=== PATIENT | male | born 1985 | race Caucasian/White ===

== ENCOUNTER 2019-01-30 10:05 | Emergency (ER) | payer MEDICAID, OTHER, SELFPAY ==
[~2019-01-30] VITALS: Ht 167.6 cm; Wt 63.6 kg
[2019-01-30 10:05] VITALS: BP 131/79
[2019-01-30] MEDS ORDERED: MAGICMW SSP (10:47)
[2019-01-30] MEDS ORDERED: CLIN1SOL24 PO (10:47)
== END 2019-01-30 10:56 | disposition home or self-care (01) ==
LOC: M ED 10:05
DX: K04.7 Periapical abscess without sinus (principal); K08.89 Other specified disorders of teeth and supporting structures; Z72.0 Tobacco use

== ENCOUNTER 2019-02-01 14:24 | Emergency (ER) | payer MEDICAID, SELFPAY ==
[~2019-02-01] VITALS: Ht 160 cm; Wt 63.6 kg
[~2019-02-01 14:24] MED LIST: CLIN1SOL24 PO; MAGICMW SSP
[2019-02-01] MEDS ORDERED: NS 1,000 ML IV ONE (15:45)
[2019-02-01 15:58] LABS: BASO # 0.1 10^3/uL (0.0-0.2); BASO % 0.7 % (0.0-1.0); EOS # 0.2 10^3/uL (0.0-0.50); EOS % 1.4 % (0.0-3.0); HEMATOCRIT 43.1 % (42.0-52.0); HEMOGLOBIN 14.7 g/dl (13.5-17.5); LYMPH # 1.4 10^3/uL (1.5-4.5); LYMPH % 13.4 % (24.0-44.0); MEAN CORPUSCULAR HEMOGLOBIN 31.4 pg (27.0-33.0); MEAN CORPUSCULAR HGB CONC 34.1 g/dl (32.0-36.5); MEAN CORPUSCULAR VOLUME 92.1 fl (80.0-96.0); MONO # 1.4 10^3/uL (0.0-0.8); NEUTROPHILS # 7.5 10^3/uL (1.8-7.7); NEUTROPHILS % 70.9 % (36.0-66.0); PLATELET COUNT, AUTOMATED 279 10^3/uL (150-450); RED BLOOD COUNT 4.68 10^6/uL (4.30-6.10); WHITE BLOOD COUNT 10.5 10^3/uL (4.0-10.0)
[2019-02-01] MEDS ORDERED: ACETAMINOPHEN 325 MG TAB PO ONE (16:00)
[2019-02-01] MEDS ORDERED: IBUPROFEN 800 MG TAB PO ONE (16:00)
[2019-02-01 16:39] LABS: ALBUMIN 3.7 GM/DL (3.2-5.2); ALT/SGPT 33 U/L (12-78); BILIRUBIN,DIRECT 0.3 MG/DL (0.0-0.2); BILIRUBIN,TOTAL 0.7 MG/DL (0.2-1.0); BLOOD UREA NITROGEN 12 MG/DL (7-18); CALCIUM LEVEL 8.6 MG/DL (8.5-10.1); CARBON DIOXIDE LEVEL 27 MEQ/L (21-32); CHLORIDE LEVEL 106 MEQ/L (98-107); CREATININE FOR GFR 0.91 MG/DL (0.70-1.30); ETHYL ALCOHOL (ETHANOL) < 0.003 % (0.000-0.010); GLOMERULAR FILTRATION RATE > 60.0 (>60); GLUCOSE, FASTING 84 MG/DL (70-100); POTASSIUM SERUM 3.8 MEQ/L (3.5-5.1); SALICYLATE LEVEL < 1.7 MG/DL (5.0-30.0); SODIUM LEVEL 141 MEQ/L (136-145); TOTAL PROTEIN 6.9 GM/DL (6.4-8.2)
[2019-02-01 16:40] LABS: ACETAMINOPHEN LEVEL < 2.0 UG/ML (10.0-30.0)
[2019-02-01 16:41] LABS: INFLUENZA A AMPLIFICATION NEGATIVE (NEGATIVE); INFLUENZA B AMPLIFICATION NEGATIVE (NEGATIVE)
[2019-02-01] MEDS ORDERED: ISOVUE-370 76% 100ML VIAL (Q9967) As Ordered ONE (16:44)
--- NOTE | 2019-02-01 17:12 | REP ---
Maxillofacial CT study with IV contrast: History: Dental abscess. Question facial abscess. Pain in the right gum line. CT contrast dose: 75 ml of intravenous ProHance. CT findings: There is a missing maxillary tooth on the right consistent with an extraction. Carious erosive changes are seen in the lateral incisor and the bicuspid in the maxilla on the right. Adjacent to the presumed extraction site, there is soft tissue swelling and one or two bubbles of soft tissue gas. There is diffuse soft tissue swelling anteriorly along the maxillary alveolus across the midline. The soft tissues at the anterior maxillary spine are somewhat swollen, but no low density fluid collection is appreciated. There is no evidence of tonsillar or peritonsillar abscess or swelling. No retropharyngeal swelling is appreciated. Epiglottis is normal. Glottic and subglottic airway are unremarkable. There are scattered normal-sized upper cervical lymph nodes visible. No vascular abnormality is seen. No intraorbital abnormality is seen. Impression: No facial abscess noted. Inflammatory swelling along the maxillary alveolus on the right and extending anteriorly across the midline. There appears to have been a right maxillary tooth extraction. Carious maxillary teeth are noted. Electronically Signed by Arnold Hebert MD 02/01/2019 05:16 P
[2019-02-01] MEDS ORDERED: AMPICILLIN SOD/SULBACTAM SOD 3 GM in D5W MINI-BAG PLUS 100 ML IV ONE (17:15)
[2019-02-01] MEDS ORDERED: AUGM875T28 PO (17:32)
[2019-02-01 18:03] LABS: AMPHETAMINES LEVEL URINE NEGATIVE (NEGATIVE); BARBITURATES URINE NEGATIVE (NEGATIVE); BENZODIAZEPINES URINE NEGATIVE (NEGATIVE); CANNABINOIDS URINE NEGATIVE (NEGATIVE); COCAINE METABOLITE URINE NEGATIVE (NEGATIVE); METHADONE URINE NEGATIVE (NEGATIVE); OPIATES URINE NEGATIVE (NEGATIVE); PHENCYCLIDINE URINE NEGATIVE (NEGATIVE)
[2019-02-01 18:07] VITALS: BP 115/55
== END 2019-02-01 18:14 | disposition home or self-care (01) ==
LOC: M ED 14:24
DX: K04.7 Periapical abscess without sinus (principal)
CPT/HCPCS: 70487; 80048; 80076; 80307; 83605; 85025; 87040; 87502; 96365; 99284; G0480; Q9967

== ENCOUNTER 2022-11-26 21:07 | Inpatient (IN) | payer MEDICAID, OTHER ==
[~2022-11-26] VITALS: Ht 167.6 cm; Wt 59.1 kg
[~2022-11-26 21:07] MED LIST changes: +AUGM875T28 PO
[2022-11-26 21:50] LABS: HEMATOCRIT 47.4 % (42.0-52.0); HEMOGLOBIN 15.6 g/dl (13.5-17.5); MEAN CORPUSCULAR HEMOGLOBIN 30.8 pg (27.0-33.0); MEAN CORPUSCULAR HGB CONC 32.9 g/dl (32.0-36.5); MEAN CORPUSCULAR VOLUME 93.7 fl (80.0-96.0); PLATELET COUNT, AUTOMATED 331 10^3/uL (150-450); RED BLOOD COUNT 5.06 10^6/uL (4.30-6.10); WHITE BLOOD COUNT 11.3 10^3/uL (4.0-10.0)
[2022-11-26 22:11] LABS: BARBITURATES URINE NEGATIVE (NEGATIVE); BENZODIAZEPINES URINE NEGATIVE (NEGATIVE); COCAINE METABOLITE URINE NEGATIVE (NEGATIVE)
[2022-11-26 22:12] LABS: CANNABINOIDS URINE NEGATIVE (NEGATIVE); METHADONE URINE NEGATIVE (NEGATIVE); OPIATES URINE NEGATIVE (NEGATIVE); PHENCYCLIDINE URINE NEGATIVE (NEGATIVE)
[2022-11-26 22:14] LABS: ETHYL ALCOHOL (ETHANOL) 0.003 % (0.000-0.010)
[2022-11-26 22:16] LABS: ACETAMINOPHEN LEVEL < 2.0 UG/ML (10.0-20.0); ALBUMIN 4.3 G/DL (3.2-5.2); ALKALINE PHOSPHATASE 126 U/L (46-116); ALT/SGPT 21 U/L (7.0-40); AMPHETAMINES LEVEL URINE POSITIVE (NEGATIVE); AST/SGOT 24 U/L (<34); BILIRUBIN,DIRECT 0.3 MG/DL (<0.4); BILIRUBIN,TOTAL 0.8 MG/DL (0.3-1.2); BLOOD UREA NITROGEN 13 MG/DL (9-23); CALCIUM LEVEL 9.5 MG/DL (8.5-10.1); CARBON DIOXIDE LEVEL 30 MMOL/L (20-31); CHLORIDE LEVEL 103 MMOL/L (98-107); CREATININE FOR GFR 0.93 MG/DL (0.70-1.30); GLOMERULAR FILTRATION RATE > 60.0 (>60); GLUCOSE, FASTING 100 MG/DL (60-100); POTASSIUM SERUM 4.4 MMOL/L (3.5-5.1); SALICYLATE LEVEL < 3.0 MG/DL (<30); SODIUM LEVEL 140 MMOL/L (136-145); TOTAL PROTEIN 7.4 G/DL (5.7-8.2)
[2022-11-26 22:20] LABS: THYROID STIMULATING HORMONE 1.493 uIU/ML (0.55-4.78)
[2022-11-26 22:27] LABS: RSV AMPLIFICATION NEGATIVE (NEGATIVE)
[2022-11-27] MEDS ORDERED: MAALOX 30 ML SUSP *UDC PO PRN (01:05)
[2022-11-27] MEDS ORDERED: ACETAMINOPHEN TAB 650MG DOSE (2X325MG) PO PRN (01:05)
[2022-11-27] MEDS ORDERED: OLANZapine ORAL DISINTEGRATING TAB 5MG PO PRN (01:05)
[2022-11-27] MEDS ORDERED: traZODone 50 MG TAB PO PRN (01:05)
[2022-11-27] MEDS ORDERED: MOM 30ML SUSPENSION UDC PO PRN (01:05)
[2022-11-27] MEDS ORDERED: HOME MED LIST COMPLETE! XX SCH ×2 (02:35→09:10)
[2022-11-27 03:42] VITALS: BP 121/81
[2022-11-27] MEDS: NICOTINE 21MG/24HR 1 EA TRANSDERMAL TD SCH ×2 (09:00→13:12)
[2022-11-27] MEDS: SERTRALINE HCL 50 MG TAB PO SCH (13:01)
[2022-11-27 17:44] VITALS: BP 133/76
[2022-11-28 06:45] VITALS: BP 114/57
[2022-11-28] MEDS: NICOTINE 21MG/24HR 1 EA TRANSDERMAL TD SCH (08:56)
[2022-11-28] MEDS: SERTRALINE HCL 50 MG TAB PO SCH (08:56)
[2022-11-28 18:00] VITALS: BP 125/79
[2022-11-29 06:30] VITALS: BP 114/65
[2022-11-29] MEDS: NICOTINE 21MG/24HR 1 EA TRANSDERMAL TD SCH (08:49)
[2022-11-29] MEDS: SERTRALINE HCL 50 MG TAB PO SCH (08:49)
[2022-11-29 16:12] VITALS: BP 138/69
[2022-11-30 06:37] VITALS: BP 148/92
[2022-11-30] MEDS: NICOTINE 21MG/24HR 1 EA TRANSDERMAL TD SCH (09:00)
[2022-11-30] MEDS: SERTRALINE HCL 50 MG TAB PO SCH (09:05)
[2022-11-30] MEDS ORDERED: NICO21PAT TD (10:40)
[2022-11-30] MEDS ORDERED: SERT50TA29 PO (10:40)
== END 2022-11-30 11:36 | disposition home or self-care (01) | DRG 753 ==
LOC: M ED 21:07 → M ED INP 11-27 01:05 → M PSY 11-27 03:36
PROVIDERS: ADMIT Student in an Organized Health Care Education/Training Program; ATTEND Student in an Organized Health Care Education/Training Program
DX: F32.89 Other specified depressive episodes (principal); F17.200 Nicotine dependence, unspecified, uncomplicated; F15.90 Other stimulant use, unspecified, uncomplicated; G47.26 Circadian rhythm sleep disorder, shift work type; Z63.9 Problem related to primary support group, unspecified

== ENCOUNTER 2024-04-16 01:17 | Inpatient (IN) | payer OTHER ==
[~2024-04-16] VITALS: Ht 167.6 cm; Wt 59.1 kg
[~2024-04-16 01:17] MED LIST changes: +NICO21PAT TD; +SERT50TA29 PO
[2024-04-16 01:48] LABS: HEMATOCRIT 48.6 % (42.0-52.0); HEMOGLOBIN 16.6 g/dl (13.5-17.5); MEAN CORPUSCULAR HEMOGLOBIN 32.2 pg (27.0-33.0); MEAN CORPUSCULAR HGB CONC 34.2 g/dl (32.0-36.5); MEAN CORPUSCULAR VOLUME 94.4 fl (80.0-96.0); PLATELET COUNT, AUTOMATED 334 10^3/uL (150-450); RED BLOOD COUNT 5.15 10^6/uL (4.30-6.10); WHITE BLOOD COUNT 10.4 10^3/uL (4.0-10.0)
[2024-04-16 02:12] LABS: ETHYL ALCOHOL (ETHANOL) < 0.003 % (0.000-0.010)
[2024-04-16 02:14] LABS: ALBUMIN 4.3 G/DL (3.2-5.2); ALKALINE PHOSPHATASE 130 U/L (46-116); ALT/SGPT 31 U/L (7.0-40); AST/SGOT 17 U/L (<34); BILIRUBIN,DIRECT 0.2 MG/DL (<0.4); BILIRUBIN,TOTAL 0.5 MG/DL (0.3-1.2); BLOOD UREA NITROGEN 11 MG/DL (9-23); CALCIUM LEVEL 9.1 MG/DL (8.5-10.1); CARBON DIOXIDE LEVEL 31 MMOL/L (20-31); CHLORIDE LEVEL 105 MMOL/L (98-107); CREATININE FOR GFR 1.17 MG/DL (0.70-1.30); GLOMERULAR FILTRATION RATE > 60.0 (>60); GLUCOSE, FASTING 72 MG/DL (60-100); POTASSIUM SERUM 4.2 MMOL/L (3.5-5.1); SALICYLATE LEVEL < 3.0 MG/DL (<30); SODIUM LEVEL 140 MMOL/L (136-145); TOTAL PROTEIN 7.2 G/DL (5.7-8.2)
[2024-04-16 02:16] LABS: THYROID STIMULATING HORMONE 1.422 uIU/ML (0.55-4.78)
[2024-04-16 02:22] LABS: BARBITURATES URINE NEGATIVE (NEGATIVE); BENZODIAZEPINES URINE NEGATIVE (NEGATIVE); CANNABINOIDS URINE NEGATIVE (NEGATIVE); COCAINE METABOLITE URINE NEGATIVE (NEGATIVE); METHADONE URINE NEGATIVE (NEGATIVE); OPIATES URINE NEGATIVE (NEGATIVE); PHENCYCLIDINE URINE NEGATIVE (NEGATIVE)
[2024-04-16 02:40] LABS: AMPHETAMINES LEVEL URINE POSITIVE (NEGATIVE)
[2024-04-16] MEDS ORDERED: HOME MED LIST COMPLETE! XX SCH (08:10)
[2024-04-16] MEDS: NICOTINE 21MG/24HR 1 EA TRANSDERMAL TD ONE (15:31)
[2024-04-16] MEDS ORDERED: MOM 30ML SUSPENSION UDC PO PRN (21:45)
[2024-04-16] MEDS ORDERED: MAALOX 30 ML SUSP *UDC PO PRN (21:45)
[2024-04-16] MEDS ORDERED: OLANZapine ORAL DISINTEGRATING TAB 5MG PO PRN (21:45)
[2024-04-16] MEDS ORDERED: traZODone 50 MG TAB PO PRN (21:45)
[2024-04-16] MEDS ORDERED: diphenhydrAMINE 25MG CAP PO PRN (21:45)
[2024-04-16] MEDS ORDERED: LORazepam 1 MG TAB PO PRN (21:45)
[2024-04-16] MEDS ORDERED: IBUPROFEN 400MG TAB PO PRN (21:45)
[2024-04-17 06:22] VITALS: BP 104/57; TEMP 99; O2SAT 98
[2024-04-17] MEDS: SERTRALINE HCL 50 MG TAB PO SCH (10:04)
[2024-04-17 18:26] VITALS: BP 112/67; TEMP 98.4
[2024-04-17] MEDS: NICOTINE 21MG/24HR 1 EA TRANSDERMAL TD SCH (19:16)
[2024-04-18 06:18] VITALS: BP 111/61; TEMP 97.8; O2SAT 98
[2024-04-18] MEDS: ACETAMINOPHEN TAB 650MG DOSE (2X325MG) PO PRN (11:12)
[2024-04-18] MEDS: buPROPion **XL** TABLET 150MG (WELLBUTRIN XL) PO SCH (11:17)
[2024-04-18 18:31] VITALS: BP 139/77; TEMP 97.6
[2024-04-19 05:51] VITALS: BP 108/56; TEMP 98.8; O2SAT 98
[2024-04-19] MEDS ORDERED: BUPR150T12 PO (09:58)
== END 2024-04-19 10:17 | disposition home or self-care (01) | DRG 776 ==
LOC: M ED 01:17 → M ED INP 21:42 → M PSY 22:29
PROVIDERS: ADMIT Student in an Organized Health Care Education/Training Program; ATTEND Student in an Organized Health Care Education/Training Program
DX: F15.14 Other stimulant abuse with stimulant-induced mood disorder (principal); F17.210 Nicotine dependence, cigarettes, uncomplicated; R45.851 Suicidal ideations; Z11.52 Encounter for screening for COVID-19; Z63.0 Problems in relationship with spouse or partner